=== PATIENT | male | born 1995 | race Caucasian/White ===

== ENCOUNTER 2016-08-30 23:17 | Emergency (ER) | payer OTHER ==
[~2016-08-30] VITALS: Ht 188 cm; Wt 89.1 kg
[2016-08-30 23:56] LABS: HEMATOCRIT 42.7 % (38.0-50.0); MCH 29.9 PG (29.0-34.0); MCHC 35.1 G/DL (30.0-36.0); MCV 85.2 FL (86-99); MEAN PLAT.VOLUME 9.9 uM^3 (9.0-12.4); PLATELET COUNT 249 K/uL (156-360); RBC DIS.WIDTH-SD 36.2 % (39-53); RED BLOOD COUNT 5.01 M/uL (4.00-5.50); WHITE BLOOD COUNT 10.4 K/uL (4.1-10.2)
[2016-08-31 00:07] LABS: CHLORIDE 104 mEq/L (99-109); POTASSIUM 3.7 mEq/L (3.7-5.4); SODIUM 140 mEq/L (136-147)
[2016-08-31 00:09] LABS: GLUCOSE 110 mg/dL (70-99)
[2016-08-31 00:10] LABS: ANION GAP 10 MEQ/L (2-14)
[2016-08-31 00:11] LABS: TOTAL BILIRUBIN 0.6 mg/dL (0.0-1.0)
[2016-08-31 00:13] LABS: ALKALINE PHOSPHATASE 50 IU/L (3-129)
[2016-08-31 00:14] LABS: UREA NITROGEN (BUN) 14 mg/dL (9-23)
[2016-08-31 00:16] LABS: LIPASE 13 U/L (1.0-51.0)
[2016-08-31 00:24] LABS: GFR ESTIMATE (CALCULATED) > 59 mL/min/
[2016-08-31] MEDS ORDERED: CLA 1,000 MG1000 MG PO (00:50)
[2016-08-31] MEDS ORDERED: AMINO ACID1 EACH PO (00:51)
[2016-08-31 01:03] LABS: ADD MIUA? YES; BILIRUBIN NEGATIVE; BLOOD NEGATIVE; COLOR YELLOW ((YELLOW)); GLUCOSE (STRIP) NEGATIVE; KETONES 5; LEUKOCYTES NEGATIVE; NITRITE NEGATIVE; PROTEIN (STRIP) NEGATIVE; SPECIFIC GRAVITY 1.014 (1.000-1.030); UROBILINOGEN 0.2 MG/DL (0.2-1.0)
[2016-08-31 01:06] LABS: BACTERIA RARE /HPF; EPITHELIAL CELLS RARE /HPF; MUCUS TRACE /LPF; RED BLOOD CELLS 0-5 /HPF (0-5); UCUL ADDED? NO; WHITE BLOOD CELLS 0-5 /HPF (0-5)
[2016-08-31 01:45] VITALS: BP 142/89
== END 2016-08-31 01:46 | disposition home or self-care (01) ==
LOC: EME 23:17 → RME 23:17
DX: R10.10 Upper abdominal pain, unspecified (principal); F17.200 Nicotine dependence, unspecified, uncomplicated
CPT/HCPCS: 74022; 80053; 81003; 83690; 85027; 99281; 99283

== ENCOUNTER 2016-10-18 05:40 | Day surgery (SDC) | payer OTHER ==
[~2016-10-18] VITALS: Ht 188 cm; Wt 83.9 kg
[~2016-10-18 05:40] MED LIST: AMINO ACID1 EACH PO; CLA 1,000 MG1000 MG PO
[2016-10-18 07:18] VITALS: BP 130/60
[2016-10-18] MEDS ORDERED: NORCO 5/3251 TABLET PO (08:35)
[2016-10-18 09:22] VITALS: BP 107/79
[2016-10-18 10:16] VITALS: BP 109/63
== END 2016-10-18 10:23 | disposition home or self-care (01) ==
LOC: SDC 05:40
PROC: 0FT44ZZ Resection of Gallbladder, Percutaneous Endoscopic Approach (ICD-10-PCS; principal; 2016-10-18)
DX: K80.10 Calculus of gallbladder with chronic cholecystitis without obstruction (principal); R53.83 Other fatigue; Z80.1 Family history of malignant neoplasm of trachea, bronchus and lung; Z82.49 Family history of ischemic heart disease and other diseases of the circulatory system; F17.210 Nicotine dependence, cigarettes, uncomplicated
CPT/HCPCS: 88304; J0330; J0690; J1100; J1885; J2250; J2405; J2710; J3010